=== PATIENT | male | born 1960 | race Hispanic/Latino ===

== ENCOUNTER → 2018-03-22 | Outpatient (CLI) | payer BC ==
[~2018-03-22] MED LIST: AMOX1TAB16 PO; ATOR20TA65 PO; CAND1TAB4 PO; DUTA0.5C17 PO; TAMS0.4C32 PO
== END | disposition home or self-care (01) ==
LOC: OIH 08:51
PROVIDERS: ATTEND Internal Medicine
DX: M47.892 Other spondylosis, cervical region (principal); M47.896 Other spondylosis, lumbar region; M25.551 Pain in right hip; M54.12 Radiculopathy, cervical region; M54.16 Radiculopathy, lumbar region; I10 Essential (primary) hypertension; V89.2XXA Person injured in unspecified motor-vehicle accident, traffic, initial encounter; Y93.89 Activity, other specified; Y92.89 Other specified places as the place of occurrence of the external cause; Y99.8 Other external cause status
CPT/HCPCS: 72050; 72100; 73502

== ENCOUNTER → 2018-03-26 | Outpatient (CLI) | payer SELFPAY | END | disposition home or self-care (01) | LOC: RAH 13:40 | PROVIDERS: ATTEND Internal Medicine | DX: M47.22 Other spondylosis with radiculopathy, cervical region (principal); M48.02 Spinal stenosis, cervical region | CPT/HCPCS: 72125 ==

== ENCOUNTER → 2018-12-03 | Outpatient (CLI) | payer BC ==
[~2018-12-03] MED LIST changes: +CAND1TAB PO; -CAND1TAB4 PO
== END | disposition home or self-care (01) ==
LOC: OIH 09:01
PROVIDERS: ATTEND Internal Medicine
DX: M47.816 Spondylosis without myelopathy or radiculopathy, lumbar region (principal)
CPT/HCPCS: 72100

== ENCOUNTER → 2024-05-27 | Outpatient (CLI) | payer OTHER ==
[~2024-05-27] MED LIST changes: -DUTA0.5C17 PO; +DUTA0.5C37 PO
--- NOTE | 2024-05-27 10:17 | HMCIMG ---
US ABDOMINAL COMPLETE HISTORY: Abdominal pain COMPARISON: None TECHNIQUE: Multiple transverse and longitudinal ultrasound images of the abdomen were obtained. FINDINGS: Proximal portion of abdominal aorta is not well seen due to overlying bowel gas. Visualized portion of the abdominal aorta are unremarkable. Portal vein is patent with flow velocity of 18 cm/s. Pancreas poorly seen. The study is limited due to over bowel gas. Liver measured 15 cm. No gallstone is seen. Common duct measures 4 mm. No evidence of gallbladder wall thickening is seen. Both kidneys are seen. Right kidney measures 12.1 x 5.6 x 5.1 cm. Left kidney measures 10.1 x 5.3 x 4.1 cm. No hydronephrosis is seen of the both kidneys. The spleen is grossly unremarkable. IMPRESSION: 1. No gallstone or ductal dilatation is seen. 2. No hydronephrosis is seen.
== END | disposition home or self-care (01) ==
LOC: RAH 08:11
PROVIDERS: ATTEND Internal Medicine
DX: R10.9 Unspecified abdominal pain (principal)
CPT/HCPCS: 76700

== ENCOUNTER 2025-04-07 18:41 | Emergency (ER) | payer OTHER ==
[~2025-04-07] VITALS: Ht 180.3 cm; Wt 102.5 kg
[2025-04-07 19:11] LABS: IMMATURE GRANULOCYTE ABSOLUTE 0.01 K/uL (0-1); NUCLEATED RED BLOOD CELLS 0.0 % (0.0-0.19); PLATELET COUNT (AUTO) 222 K/uL (130-400); RED BLOOD CELL COUNT(AUTO) 4.09 MIL/uL (4.50-6.20); RED CELL DISTRIBUTION WIDTH 11.7 % (11.0-15.5); WHITE BLOOD COUNT (AUTO) 7.2 K/uL (4.8-10.8)
[2025-04-07 19:19] LABS: CREATININE 2.0 mg/dL (0.5-1.3); GLOMERULAR FILTR. RATE CALC 36.0 mL/min (>90); GLUCOSE,RANDOM 109.0 mg/dL (70-105); SODIUM SERUM 134.0 mmol/L (136-145); UREA NITROGEN, BLOOD 38.0 mg/dL (7-18)
--- NOTE | 2025-04-07 19:30 | NUR ---
PT CARE ASSUMED AT THIS TIME
--- NOTE | 2025-04-07 19:52 | EKG ---
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
[2025-04-07] MEDS: 0.9%NACL 1000ML 1,000 ML IV SCH (20:33)
[2025-04-07 20:43] LABS: ADD UA MICROSCOPIC YES; APPEARANCE,URINE CLEAR (CLEAR); GLUCOSE, URINE (UA) NEGATIVE (NEGATIVE); LEUKOCYTE ESTERASE ,URINE NEGATIVE Leu/uL (NEGATIVE); NITRATE,URINE NEGATIVE (NEGATIVE); OCCULT BLOOD,URINE +- (TRACE) (NEGATIVE)
--- NOTE | 2025-04-07 21:04 | ERN ---
General Chief Complaint: Abnormal Labs Stated Complaint: ABNORMAL LABS Time Seen by MD: 18:44 Time Seen by Midlevel: 18:44 Source: patient History of Present Illness Initial Comments Patient is a 64-year-old male presenting to the emergency department for evaluation of abnormal labs. The patient had preop labs performed earlier today for a heart catheterization that he is having in two days. He was called today and told his potassium and kidney function was elevated. On arrival with the patient has no complaints. He does admit to drinking alcohol several days ago which he normally does not do. Allergies: Coded Allergies: No Known Drug Allergies (Verified Allergy, Unknown, 10/01/16) Home Meds Reported Medications Rosuvastatin Calcium (Rosuvastatin Calcium) 40 Mg Tablet, 40 MG PO HS, TAB 04/07/25 Candesartan Cilexetil (Candesartan Cilexetil) 32 Mg Tablet, 32 MG PO DAILY, TAB 04/07/25 Discontinued Reported Medications Amoxicillin/Potassium Clav (Amox Tr-K Clv 875-125 mg Tab) 1 Each Tablet, 1 EACH PO BID, TAB 10/03/16 Tamsulosin HCl (Tamsulosin HCl) 0.4 Mg Cap.er.24h, 0.4 MG PO NOON, CAPSULE.DR 10/03/16 Candesartan/Hydrochlorothiazid (Atacand Hct 32-12.5 mg Tab) 1 Each Tablet, 1 EACH PO AM, TAB 10/03/16 Dutasteride (Dutasteride) 0.5 Mg Capsule, 0.5 MG PO DAILY, CAP 10/01/16 Atorvastatin Calcium (Atorvastatin Calcium) 20 Mg Tablet, 20 MG PO DAILY, TAB 10/01/16 Past Medical History Past Medical History: High Cholesterol, Hypertension Past Surgical History: Other ROS Dictation CONSTITUTIONAL: Negative except for HPI HEAD/FACE: Negative except for HPI EENT: Negative except for HPI RESPIRATORY: Negative except for HPI GASTROINTESTINAL/ABDOMINAL: Negative except for HPI GENITOURINARY: Negative except for HPI MUSCULOSKELETAL: Negative except for HPI INTEGUMENTARY: Negative except for HPI NEUROLOGICAL/PSYCH: Negative except for HPI HEMATOLOGIC/LYMPHATIC: Negative except for HPI All Systems Negative, Except as noted above. 13 point review of systems assessed and all negative except for above. Physical Exam Physical Exam Dictation Vital Signs reviewed General Appearance: Alert, oriented x 3, no acute distress, well developed, nourished. Head and Face: non-traumatic. Eyes: PERRL, pink conjunctivas, eyelid no trauma, anterior chamber with arcus senilis. Ears: Pinnas intact and no signs of trauma or erythema ear canals clear and no discharge TM no erythema Nose: No discharge, no bleeding. Oropharynx: Mouth normal, tongue pink, pharynx clear,no erythema, tonsils no exudates, no abscesses noted, mucous membrane moist Neck: Supple, non-tender, no thyromegaly, no masses, no JVD, no bruits Breast:Deferred Chest:No tenderness, no crepitus, no paradoxical movement, no retractions Lungs:Clear, well-ventilated, symmetric, no rales, no wheezing, no rhonchi, no stridor, good breath sounds bilaterally Heart: Regular rate, regular rhythm, no murmur, no gallops Vascular: no peripheral edema, Abdomen: Soft, positive bowel sounds, nondistended, no guarding, nontender, no rebound, no masses no hepatomegaly, no splenomegaly, no Lopez's sign, no hernias. Rectal: Deferred Genital: Deferred Neurological: Normal speech, motor function intact, sensory function intact Musculoskeletal: Neck nontender, full range of motion, back nontender, full range of motion, Extremities: nontender, full range of motion Skin: Color pink, dry, no turgor, no rash, no lacerations, no abrasions, no contusions. Lymphatic: Deferred Results Laboratory and Microbiology Lab and Micro Result Laboratory Tests Test 04/07/25 19:03 04/07/25 20:22 White Blood Count 7.2 K/uL (4.8-10.8) Red Blood Count 4.09 MIL/uL (4.50-6.20) L Hemoglobin 13.0 g/dL (14.0-18.0) L Hematocrit 36.1 % (42-54) L Mean Corpuscular Volume 88.3 fL (79-99) Mean Corpuscular Hemoglobin 31.8 pg (27.0-33.0) Mean Corpuscular Hemoglobin Concent 36.0 g/dL (32.0-36.0) Red Cell Distribution Width 11.7 % (11.0-15.5) Platelet Count 222 K/uL (130-400) Mean Platelet Volume 9.9 fL (7.5-10.5) Immature Granulocyte % (Auto) 0.1 % (0-1) Neutrophils (%) (Auto) 61.8 % (40.0-77.0) Lymphocytes (%) (Auto) 23.5 % (21.0-51.0) Monocytes (%) (Auto) 11.4 % (3.0-13.0) Eosinophils (%) (Auto) 2.2 % (0.0-8.0) Basophils (%) (Auto) 1.0 % (0.0-5.0) Neutrophils # (Auto) 4.4 K/uL (1.8-7.7) Lymphocytes # (Auto) 1.7 K/uL (1.0-4.8) Monocytes # (Auto) 0.8 K/uL (0.1-1.0) Eosinophils # (Auto) 0.16 K/uL (0.00-0.70) Basophils # (Auto) 0.07 K/uL (0.00-0.20) Absolute Immature Granulocyte (auto 0.01 K/uL (0-1) Nucleated Red Blood Cells 0.0 % (0.0-0.19) Sodium Level 134 mmol/L (136-145) L Potassium Level 4.6 mmol/L (3.5-5.1) Chloride Level 100 mmol/L (101-111) L Carbon Dioxide Level 23 mmol/L (21-32) Blood Urea Nitrogen 38 mg/dL (7-18) H Creatinine 2.0 mg/dL (0.5-1.3) H Glomerular Filtration Rate Calc 36 mL/min (>90) Random Glucose 109 mg/dL (70-105) H Total Calcium 8.8 mg/dL (8.5-10.1) Magnesium Level 2.10 mg/dL (1.80-2.40) Troponin I High Sensitivity 28 ng/L (4-75) Urine Color COLORLESS (YELLOW) Urine Appearance CLEAR (CLEAR) Urine pH 5.5 (5.0-8.0) Urine Specific [place] 1.007 (1.001-1.031) Urine Protein 10 mg/dL (NEGATIVE) H Urine Glucose (UA) NEGATIVE mg/dL (NEGATIVE) Urine Ketones NEGATIVE mg/dL (NEGATIVE) Urine Occult Blood +- (TRACE) (NEGATIVE) H Urine Nitrate NEGATIVE (NEGATIVE) Urine Bilirubin NEGATIVE mg/dL (NEGATIVE) Urine Urobilinogen 0.2 mg/dL (0.2-1.0) Urine Leukocyte Esterase NEGATIVE [place]/uL Urine RBC 0-1 /HPF (0-1) Urine WBC 0-1 /HPF (0-1) Urine Bacteria None /HPF (None Seen) Labs Reviewed?: Yes MDM MDM: Patient is a 64-year-old male presenting to the emergency department for evaluation of abnormal labs. The patient had preop labs performed earlier today for a heart catheterization that he is having in two days. He was called today and told his potassium and kidney function was elevated. On arrival with the patient has no complaints. He does admit to drinking alcohol several days ago which he normally does not do. On physical examination the patient is in no acute distress. Vital signs are stable. Patient is asymptomatic. CBC shows no leukocytosis. Chemistries reveal an elevated creatinine at 2.0. Potassium is normal. Since I did not have labs to compare kidney function to the initial diagnosis with a see an acute kidney injury however I discussed with his primary care doctor Dr. Yang who reviewed the patient's chart and states the patient has a history of chronic kidney disease and does not need to be admitted for this. This was discussed with the patient and the patient was discharged he was advised to follow up with his PCP on Thursday Differential diagnosis: Acute kidney injury, chronic kidney disease, dehydration There are no social concerns with this patient. Prescription drug management Prescriptions will include: None Medical management and examination interpretation discussions were had by me with other qualified healthcare professionals as indicated for the patient's care. ED Course Orders Procedure Category Date Status Time 12 Lead Ekg Tracing- EKG 04/07/25 Complete Technical 18:52 Cbc With Differential LAB 04/07/25 Complete 18:52 Basic Metabolic Panel LAB 04/07/25 Complete 18:52 Magnesium LAB 04/07/25 Complete 18:52 Troponin I High LAB 04/07/25 Complete Sensitivity 18:52 Urinalysis Profile LAB 04/07/25 Complete 18:52 0.9%Nacl 1000ml (Ns PHA 04/07/25 In Process 1000ml) 20:30 Current Medications Medications (Trade) Dose Ordered Sig/Lara Route PRN Reason Start Time Stop Time Status Last Admin Dose Admin Sodium Chloride 1,000 ml @ 0 mls/hr ONCE IV 04/07/25 20:30 04/08/25 20:29 04/07/25 20:33 Vital Signs Date Time Temp Pulse Resp B/P (MAP) Pulse Ox O2 Delivery O2 Flow Rate FiO2 04/07/25 19:54 98.4 86 16 134/78 98 Room Air* 0 21 04/07/25 18:43 98.4 91 20 141/78 98 Room Air DX & DISP Disposition: Inpatient Departure Impression: Primary Impression: Chronic kidney disease Condition: Stable Additional Instructions: Your blood work today is stable. Your potassium is normal at 4.8. Your creatinine is 2.0 which appears to be stable. Your case was discussed with your primary care doctor Dr. Yang who states you may be discharged home given that your blood work is stable. Referrals: JOSE YANG MD (PCP) Time of Disposition: 21:03 I have reviewed the case, and I agree with, Diagnosis and Plan I performed the substantive portion of the visit. I have reviewed and personally made and approve the management plan that is documented in the note by myself or the MARIAN. I acknowledge for responsibility for the patient's management plan. DALIA SANDY PAC Apr 07, 2025 21:04
[2025-04-07 21:53] VITALS: BP 125/77; PULSE 75; RESP 16; TEMP 98.5; O2SAT 99
== END 2025-04-07 22:05 | disposition home or self-care (01) ==
LOC: EDH 18:41
DX: I12.9 Hypertensive chronic kidney disease with stage 1 through stage 4 chronic kidney disease, or unspecified chronic kidney disease (principal); N18.9 Chronic kidney disease, unspecified; E78.00 Pure hypercholesterolemia, unspecified; Z79.899 Other long term (current) drug therapy; Z79.2 Long term (current) use of antibiotics
CPT/HCPCS: 99284; 96360; 83735; 84484; 80048; 85025; 81001; 36415; 93005; J7030

== ENCOUNTER → 2025-04-07 | Outpatient (CLI) | payer OTHER ==
[~2025-04-07] VITALS: Ht 180.3 cm; Wt 103.0 kg
[~2025-04-07] MED LIST changes: +CAND32TA22 PO; +ROSU40TA88 PO
[2025-04-07 12:36] VITALS: BP 134/77; PULSE 89; RESP 14; TEMP 97.9
[2025-04-07 12:36] LABS: IMMATURE GRANULOCYTE ABSOLUTE 0.02 K/uL (0-1); NUCLEATED RED BLOOD CELLS 0.0 % (0.0-0.19); PLATELET COUNT (AUTO) 236 K/uL (130-400); RED BLOOD CELL COUNT(AUTO) 4.27 MIL/uL (4.50-6.20); RED CELL DISTRIBUTION WIDTH 11.7 % (11.0-15.5); WHITE BLOOD COUNT (AUTO) 8.3 K/uL (4.8-10.8)
[2025-04-07 12:44] LABS: APPEARANCE,URINE CLEAR (CLEAR); GLUCOSE, URINE (UA) NEGATIVE (NEGATIVE); LEUKOCYTE ESTERASE ,URINE NEGATIVE Leu/uL (NEGATIVE); NITRATE,URINE NEGATIVE (NEGATIVE); OCCULT BLOOD,URINE +- (TRACE) (NEGATIVE)
[2025-04-07 12:45] LABS: ADD UA MICROSCOPIC YES
[2025-04-07 12:47] LABS: SQUAMOUS EPITHELIAL CELL,UR FEW /HPF (0-2)
[2025-04-07 12:47] LABS: CREATININE 2.0 mg/dL (0.5-1.3); GLOMERULAR FILTR. RATE CALC 36.0 mL/min (>90); GLUCOSE,RANDOM 95.0 mg/dL (70-105); SODIUM SERUM 135.0 mmol/L (136-145); UREA NITROGEN, BLOOD 35.0 mg/dL (7-18)
[2025-04-07 12:52] LABS: INR 1.07 (0.85-1.15)
--- NOTE | 2025-04-07 13:28 | HMCIMG ---
CHEST 1VW REASON: PREOP COMPARISON: None. FINDINGS: Single view of the chest was obtained. Lungs are clear. Heart size is normal. There is no pulmonary vascular congestion. Mediastinum and bony thorax appear unremarkable. IMPRESSION: 1. Normal single view chest x-ray.
--- NOTE | 2025-04-07 15:15 | EKG ---
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
--- NOTE | 2025-04-07 16:00 | NUR ---
RE: LABS REPORTED BMP RESULTS TO DR DARNELL ADAMS. RECEIVED ORDERS TO SEND PATIENT TO ER DUE TO POTASSIUM 5.8 AND CANCEL HEART CATH DUE TO GFR RESULTS. CALLED PATIENT AND SPOKE WITH SPOUSE. INSTRUCTED HER TO TAKE PATIENT TO ER DUE TO ELEVATED POTASSIUM AND THAT PROCEDURE WAS GOING TO BE CANCELED. VERBALIZED UNDERSTANDING AND STATED SHE WOULD TAKE PATIENT TO ER.
== END ==
LOC: EDSTATUS 12:00 → DAH 12:02
PROVIDERS: ATTEND Student in an Organized Health Care Education/Training Program
DX: Z01.818 Encounter for other preprocedural examination (principal); R07.9 Chest pain, unspecified; I25.10 Atherosclerotic heart disease of native coronary artery without angina pectoris
CPT/HCPCS: 36415; 71045; 80048; 81001; 83880; 85025; 85610; 85730; 93005

== ENCOUNTER 2025-05-22 07:20 | Day surgery (SDC) | payer OTHER ==
[2025-05-17 10:14] LABS: IMMATURE GRANULOCYTE ABSOLUTE 0.02 K/uL (0-1); NUCLEATED RED BLOOD CELLS 0.0 % (0.0-0.19); PLATELET COUNT (AUTO) 271 K/uL (130-400); RED BLOOD CELL COUNT(AUTO) 4.19 MIL/uL (4.50-6.20); RED CELL DISTRIBUTION WIDTH 11.6 % (11.0-15.5); WHITE BLOOD COUNT (AUTO) 7.0 K/uL (4.8-10.8)
[2025-05-17 10:20] LABS: ADD UA MICROSCOPIC YES; APPEARANCE,URINE CLEAR (CLEAR); GLUCOSE, URINE (UA) NEGATIVE (NEGATIVE); LEUKOCYTE ESTERASE ,URINE NEGATIVE Leu/uL (NEGATIVE); NITRATE,URINE NEGATIVE (NEGATIVE); OCCULT BLOOD,URINE SMALL (NEGATIVE)
[2025-05-17 10:21] LABS: CREATININE 1.5 mg/dL (0.5-1.3); GLOMERULAR FILTR. RATE CALC 51.0 mL/min (>90); GLUCOSE,RANDOM 95.0 mg/dL (70-105); SODIUM SERUM 132.0 mmol/L (136-145); UREA NITROGEN, BLOOD 35.0 mg/dL (7-18)
[2025-05-17 10:25] LABS: INR 1.07 (0.85-1.15)
[2025-05-17 10:38] VITALS: BP 137/77; PULSE 87; RESP 17; TEMP 97.4
[2025-05-17 10:58] LABS: FINE GRANULAR CASTS,URINE 0-2 /LPF (None Seen)
--- NOTE | 2025-05-17 12:51 | HMCIMG ---
CHEST 1VW REASON: PRE OP COMPARISON: Study from 04/07/2025 is available. FINDINGS: Single view of the chest was obtained. Lungs are clear. Heart size is normal. There is no pulmonary vascular congestion. Mediastinum and bony thorax appear unremarkable. The bony thorax demonstrated multiple tacking device seen in the right humeral head. 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 IMPRESSION: 1. No acute cardiopulmonary process and unchanged from prior study..
--- NOTE | 2025-05-17 13:36 | NUR ---
report reported bmp to dr robina barrios. ok to proceed
[2025-05-22] VITALS (9 sets, daily range): BP systolic 108–137; BP diastolic 55–79; PULSE 65–85; RESP 14–15; TEMP 97.5–97.7
[~2025-05-22] VITALS: Ht 180.3 cm; Wt 97.5 kg
[~2025-05-22 07:20] MED LIST changes: -AMOX1TAB16 PO; +ASPI-1005 PO; -ATOR20TA65 PO; -CAND1TAB PO; -DUTA0.5C37 PO; -TAMS0.4C32 PO
--- NOTE | 2025-05-22 07:26 | EKG ---
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
[2025-05-22] MEDS: 0.9%NACL 1000ML 1,000 ML IV SCH (08:42)
[2025-05-22] MEDS ORDERED: IOHEXOL 350 MG/ML 100ML INFUS..BTL IV ONE (09:41)
[2025-05-22] MEDS ORDERED: LIDOCAINE HCL 400MG/20ML VIAL ONE (09:41)
[2025-05-22] MEDS ORDERED: VERAPAMIL HCL 2.5 MG/ML VIAL ONE (09:41)
[2025-05-22] MEDS ORDERED: HEParin-NS 1,000 UNIT/500 ML 1,000 ML IV ONE (09:41)
[2025-05-22] MEDS ORDERED: NITROGLYCERIN 50MG VIAL ONE (09:42)
[2025-05-22] MEDS ORDERED: MIDAZOLAM HCL 1 MG/ML 2ML VIAL ONE ×2 (09:54→10:16)
--- NOTE | 2025-05-22 11:06 | PRN ---
PROCEDURE REPORT DATE OF PROCEDURE: May 22, 2025 CORPORATE COMPLIANCE OFFICER: [ Melody Grace MD] PROCEDURE PERFORMED: Conscious sedation Ultrasound guided right radial artery access Selective left coronary artery angiogram Selective right coronary artery angiogram Left heart catheterization TR band 13 desi over right radial artery INDICATION: Abnormal CCTA DESCRIPTION OF PROCEDURE: After informed consent was obtained, the patient was prepped and draped in the usual sterile fashion. A 6 Israeli arterial sheath was inserted in the right radial artery using ultrasound guidance with first pass wall puncture. The arterial sheath was aspirated and flushed. A 6 [place] JL 3.5 was then advanced to the ascending aorta over an exchange length J-tip guidewire, was aspirated and flushed, and was used for selective coronary angiograms in multiple obliquities. A JR-4 was advanced in a similar fashion to the ascending aorta over the J-tipped guidewire and was used for selective right coronary angiograms in multiple oblique views with findings as outlined below. The JR-4 catheter advanced into the LV and pressures were obtained with a pull-back across the aortic valve. A TR band was placed over right radial artery. FLUOROSCOPY TIME: 10.7 min LEFT HEART HEMODYNAMICS: LVEDP 15 mm Hg with a mean gradient of 61mmHg across the aortic valve suggestive of severe CORONARY ANGIOGRAM: LEFT MAIN: Patent, short and 0% stenosis. Gives rise to LCx and LAD. LEFT ANTERIOR DESCENDING: Large vessel giving rise to two Diagonal branches. There is 20-30% mid LAD stenosis just after the first septal artery with KATHYA 3 flow. LEFT CIRCUMFLEX: Large and gives rise to two OM branches. 20-30% ostial stenosis. RIGHT CORONARY ARTERY: Small, nondominant vessel with 80-85% ostial and 50-60% prox-mid stenosis HEMOSTASIS: TR band 12 desi over right radial artery INTERVENTIONS: None. COMPLICATIONS: None FINDINGS: Normal coronary anatomy and moderate single vessel non-obstructive CAD (Small nondom RCA with 80-85% stenosis). Severe aortic stenosis ESTIMATED BLOOD LOSS: 5 cc RECOMMENDATIONS/INSTRUCTIONS: Aggressive risk factor modification. Repeat echo to assess for severe aortic stenosis CONTRAST DELIVERED TO PATIENT (mL): 85cc MELODY GRACE MD May 22, 2025 11:06
[2025-05-22] MEDS ORDERED: DEXTROSE 50%-WATER 50 ML DISP.SYRIN IV PRN (11:30)
[2025-05-22] MEDS ORDERED: GLUCAGON 1MG KIT 1 MG ML IM PRN (11:30)
[2025-05-22] MEDS ORDERED: 0.9%NACL 1000ML 1,000 ML IV SCH (11:30)
--- NOTE | 2025-05-22 13:35 | NUR ---
VASBAND REMOVED RIGHT WRIST SITE ASYMPTOMATIC. DRESSED WITH STERILE GAUZE WRAPPED WITH TEGADERM NAD VSS
--- NOTE | 2025-05-22 14:50 | NUR ---
BOTH PT AND SPOUSE GIVEN VERBAL AND WRITTEN DISCHARGE INSTRUCTIONS IV REMOVED SITE ASYMPTOMATIC. PT TAKEN OUT VIA WHEELCHAIR SPOUSE DRIVING. RIGHT RADIAL SITE ASYMPTOMATIC.
== END 2025-05-22 14:58 | disposition home or self-care (01) ==
LOC: DAH 07:20
PROVIDERS: ATTEND Student in an Organized Health Care Education/Training Program
DX: R94.39 Abnormal result of other cardiovascular function study (principal); I25.119 Atherosclerotic heart disease of native coronary artery with unspecified angina pectoris; R07.9 Chest pain, unspecified; I12.9 Hypertensive chronic kidney disease with stage 1 through stage 4 chronic kidney disease, or unspecified chronic kidney disease; N18.9 Chronic kidney disease, unspecified; I35.0 Nonrheumatic aortic (valve) stenosis; E78.5 Hyperlipidemia, unspecified; Z82.49 Family history of ischemic heart disease and other diseases of the circulatory system; Z79.899 Other long term (current) drug therapy
CPT/HCPCS: 80048; 83880; 85025; 85610; 85730; 81001; 36415; 71045; 93005; 99156; 99157 ×2; 93458; Q9965 ×2; A4223 ×3; C1769; C1887; C1894; A4649; J3010; J3490 ×3; J1644 ×2; J2250 ×2; Q9967; A4215; A6402; A4222; A4221; A4663; A4216; A6206; A4606; 96360; 96361